=== PATIENT | female | born 1970 | race Caucasian/White ===

== ENCOUNTER → 2018-04-17 | Outpatient (CLI) | payer OTHER ==
[~2018-04-17] MED LIST: ALEVE220 M2 PO; CIPROFLOXACIN500 M1 PO; KEFLEX500 MG PO; LAMICTAL150 M1 PO; LAMICTAL200 MG PO; LODINE400 MG PO; MELATONIN1 MG PO; MELATONIN5 M1 PO; METAXALONE800 MG PO; METRONIDAZOLE500 MG PO; NEURONTIN300 MG PO; NEURONTIN600 MG PO; NORCO 5/3251 TABLET PO; PRAZOSIN HCL1 MG PO; PREDNISONE2.5 MG PO; PRENATAL1 EACH PO; PROMETHAZINE HC25 M1 PO; SEROQUEL; SEROQUEL200 MG PO; TIZANIDINE HCL4 M1 PO; VISTARIL25 MG PO
== END | disposition home or self-care (01) ==
LOC: RAD 19:50
DX: K59.00 Constipation, unspecified (principal); M54.9 Dorsalgia, unspecified
CPT/HCPCS: 74176